=== PATIENT | female | born 1980 | race Caucasian/White ===

== ENCOUNTER 2016-06-23 21:22 | Inpatient (IN) | payer BC, OTHER ==
[2016-06-23] MEDS ORDERED: HYDROmorphone 1 MG/ML 1 ML SYRINGE IVP STA (22:54)
[2016-06-23] MEDS ORDERED: ONDANSETRON 4 MG/2 ML VIAL IVP STA (22:54)
[2016-06-23] MEDS ORDERED: SODIUM CHLORIDE 0.9% 1,000 ML IV STA (22:54)
[2016-06-23 23:07] LABS: Basophils % (A) 0 %; CH 32.2; CHCM 34.2; Eosinophils # (A) 0.5 k/uL (0-0.7); Eosinophils % (A) 3 %; HCT 42.4 % (34.0-46.0); HDW 2.38; Luc # (Auto) 0.17; Luc % (Auto) 1; Lymphocytes # (A) 2.6 k/uL (1.0-4.8); Lymphocytes % (A) 19 %; MCH 31.3 pg (25.0-35.0); MCHC 33.1 g/dL (31.0-37.0); MCV 94.7 fL (80.0-100.0); Mean Platelet Volume 6.5; Monocytes # (A) 0.6 k/uL (0-1.0); Monocytes % (A) 5 %; Neutrophils # (A) 10.2 k/uL (1.3-7.7); Neutrophils % (A) 72 %; RBC 4.48 m/uL (3.80-5.40); RDW 12.7 % (11.5-15.5); WBC 14.1 k/uL (3.8-10.6); WBC (Perox) 14.53
[2016-06-23 23:15] LABS: ALT 32 U/L (9-52); AST 23 U/L (14-36); Alkaline Phosphatase 65 U/L (38-126); Amorphous Sediment,Urine Rare /hpf; Amylase 51 U/L (30-110); Anion Gap 12 mmol/L; Appearance,Urine Cloudy (Clear); Bilirubin,Urine Negative (Negative); Blood Urea Nitrogen 12 mg/dL (7-17); Calcium 9.1 mg/dL (8.4-10.2); Carbon Dioxide 22 mmol/L (22-30); Chloride 107 mmol/L (98-107); Glucose 95 mg/dL (74-99); Glucose,Urine (UA) Negative (Negative); Ketones,Urine Negative (Negative); Leukocyte Esterase,Urine Negative (Negative); Nitrite,Urine Negative (Negative); Non-African American GFR(MDRD) >60 (>60 ml/min/1.73 sqM); Particle Count 9940; Potassium 4.4 mmol/L (3.5-5.1); Protein,Urine Trace (Negative); RBC,Urine 6 /hpf (0-5); Sodium 141 mmol/L (137-145); Specific Gravity,Urine 1.019 (1.001-1.035); Squamous Epithelial Cell,Urine 8 /hpf (0-4); Total Bilirubin 0.5 mg/dL (0.2-1.3); Total Protein 7.3 g/dL (6.3-8.2); UA Billing (MACRO vs. MICRO) MICRO; Urobilinogen,Urine <2.0 mg/dL (<2.0); WBC,Urine 3 /hpf (0-5)
--- NOTE | 2016-06-23 23:35 | XR ---
EXAMINATION TYPE: XR KUB DATE OF EXAM: 06/23/2016 11:22 PM COMPARISON: NONE HISTORY: Abdominal pain TECHNIQUE: 2 views FINDINGS: Bowel gas pattern is normal. There is no sign of intestinal obstruction or pneumoperitoneum . Fecal pattern is normal. Lung bases are clear. There is no sign of a mass. There are clips from tub al ligation. There are no pathologic calcifications over the kidneys. IMPRESSION: Nonacute abdomen.
[2016-06-24] MEDS ORDERED: HYDROmorphone 1 MG/ML 1 ML SYRINGE IVP STA ×3 (00:18→09:09)
[2016-06-24] MEDS ORDERED: RX INFO: IV CONTRAST WAS GIVEN 1 EACH MISC MISCELLANE PRN (00:22)
--- NOTE | 2016-06-24 00:26 | ED ---
Abdominal Pain HPI - General Chief Complaint: Abdominal Pain Stated Complaint: abdominal pain Time Seen by Provider: 06/23/16 22:53 Source: patient, family, RN notes reviewed Mode of arrival: ambulatory Limitations: no limitations - History of Present Illness Initial Comments: Patient is a 35-year-old female presenting to the with chief complaint of lower abdominal pain for approximately one day. She states that it occurred approximately 3 PM and has gotten much worse since then. She states a 10 out of 10. She denies any changes in urination or changes in bowel or bladder habits. She states that she's had no nausea or vomiting. He states this just a cramping bilateral lower abdominal pain, she denies vaginal discharge. She does state that she had a tubal ligation. Patient does state that she has some dysuria. She denies any significant past medical history. Patient denies any recent fever, chills, shortness of breath, chest pain, back pain, numbness or tingling, constipation or diarrhea, headaches or visual changes, or any other current symptoms. - Related Data Home Medications Medication Instructions Recorded Confirmed No Known Home Medications [No 06/23/16 06/24/16 Known Home Medications] Allergies Allergy/AdvReac Type Severity Reaction Status Date / Time paroxetine HCl [From Paxil] Allergy throat Verified 06/24/16 05:22 burning & swelling Review of Systems ROS Statement: Those systems with pertinent positive or pertinent negative responses have been documented in the HPI. ROS Other: All systems not noted in ROS Statement are negative. Past Medical History Past Medical History: Asthma, Musculoskeletal Disorder Additional Past Medical History / Comment(s): had gestational diabetes during , back problems History of Any Multi-Drug Resistant Organisms: None Reported Past Surgical History: Tubal Ligation Past Anesthesia/Blood Transfusion Reactions: No Reported Reaction Past Psychological History: Anxiety, Depression Additional Psychological History / Comment(s): Pt states PPD c\last delivery 2011 Smoking Status: Current every day smoker Past Alcohol Use History: None Reported Past Drug Use History: None Reported - Past Family History Father Family Medical History: Cancer Mother Family Medical History: Hypertension General Exam - General Exam Comments Initial Comments: Patient is a 35-year-old female. She has been in moderate discomfort. Limitations: no limitations General appearance: alert, in no apparent distress Head exam: Present: atraumatic, normocephalic, normal inspection Eye exam: Present: normal appearance, PERRL, EOMI. Absent: scleral icterus, conjunctival injection, periorbital swelling ENT exam: Present: normal exam, mucous membranes moist Neck exam: Present: normal inspection. Absent: tenderness, meningismus, lymphadenopathy Respiratory exam: Present: normal lung sounds bilaterally. Absent: respiratory distress, wheezes, rales, rhonchi, stridor Cardiovascular Exam: Present: regular rate, normal rhythm, normal heart sounds. Absent: systolic murmur, diastolic murmur, rubs, gallop, clicks GI/Abdominal exam: Present: soft, tenderness (Patient has significant bilateral lower abdominal tenderness.), normal bowel sounds. Absent: distended, guarding , rebound, rigid External exam: Present: normal external exam Speculum exam: Present: normal speculum exam. Absent: erythema, vaginal discharge, cervical discharge, vaginal bleeding By manual exam: Present: normal by manual exam, cervical motion tenderness ( Patient did have some cervical motion tenderness. There is no evidence of purulent discharge indicating a PID.) Extremities exam: Present: normal inspection, full ROM, normal capillary refill. Absent: tenderness, pedal edema, joint swelling, calf tenderness Back exam: Present: normal inspection Neurological exam: Present: alert, oriented X3, CN II-XII intact Psychiatric exam: Present: normal affect, normal mood Skin exam: Present: warm, dry, intact, normal color. Absent: rash Course Vital Signs 06/23/16 06/24/16 06/24/16 21:26 00:46 03:33 Temperature 98.3 F Pulse Rate 114 H 88 79 Respiratory 18 18 24 Rate Blood Pressure 138/80 112/66 139/74 O2 Sat by Pulse 100 99 98 Oximetry 06/24/16 05:03 Temperature 98.1 F Pulse Rate 87 Respiratory 24 Rate Blood Pressure 140/73 O2 Sat by Pulse 98 Oximetry - Reevaluation(s) Reevaluation #1: 06/24/16 03:33 Patient is reevaluated and has diffuse abdominal tenderness and guarding. There are concerns for peritonitis. Medical Decision Making - Medical Decision Making Patient is a 35-year-old female presenting to the ED with 1 day of bilateral lower abdominal pain. She states is a sharp stabbing pain. She states that she has no nausea or vomiting. Patient has significant only tender in the lower abdominal area. Initial KUB x-ray was negative for any acute process. CT of the abdomen and pelvis shows that there is free fluid in the pelvis and left paracolic gutter. No discrete intestinal abnormality seen. There is a cystic area 4.5 cm on the right adnexal region. The appendix is not visualized. The fluid in the pelvis has an intermediate attenuation suggestive of hemorrhage or complex fluid. The radiologist consider possibilities of PID with pelvic abscess, ruptured appendix with abscess, hemorrhagic ovarian cyst, ruptured ectopic . Patient at this point after the computed tomography scan was started on IV Flagyl and Zosyn. A surgical consult with Dr. Valentin as well as ARCHEOLOGY FACULTY MEMBER Dr. Guerrero will be consulted. Given the patient had no vaginal discharge is less likely to be a PID. Patient was given a second liter bolus as well as pain control. Dr. Homero Hernández were consulted. Patient was given aggressive fluid resuscitation. While in the EC her abdominal pain continue despite conservative peritonitis. The IV antibiotics were adjusted with 4.5 mg of Zosyn. Patient will be admitted to Dr. Pham with the diagnosis of hemorrhagic ovarian cyst. As well as peritonitis. Patient only given continuous pain medication. Patient will be violated by Dr. Guerrero in the morning and pending surgery. While in the EC patient also reports that she is feeling that she is unable to urinate. Patient will be given a Leonard catheter before going upstairs. Critical care time was approximately 35-40 minutes. - Lab Data Result diagrams: 06/23/16 23:00 06/23/16 23:00 Lab Results 06/23/16 06/23/16 06/23/16 Range/Units 23:00 23:00 23:00 WBC 14.1 H (3.8-10.6) k/uL RBC 4.48 (3.80-5.40) m/uL Hgb 14.0 (11.4-16.0) gm/dL Hct 42.4 (34.0-46.0) % MCV 94.7 (80.0-100.0) fL MCH 31.3 (25.0-35.0) pg MCHC 33.1 (31.0-37.0) g/dL RDW 12.7 (11.5-15.5) % Plt Count 357 (150-450) k/uL Neutrophils % 72 % Lymphocytes % 19 % Monocytes % 5 % Eosinophils % 3 % Basophils % 0 % Neutrophils # 10.2 H (1.3-7.7) k/uL Lymphocytes # 2.6 (1.0-4.8) k/uL Monocytes # 0.6 (0-1.0) k/uL Eosinophils # 0.5 (0-0.7) k/uL Basophils # 0.0 (0-0.2) k/uL Sodium 141 (137-145) mmol/L Potassium 4.4 (3.5-5.1) mmol/L Chloride 107 (98-107) mmol/L Carbon Dioxide 22 (22-30) mmol/L Anion Gap 12 mmol/L BUN 12 (7-17) mg/dL Creatinine 0.58 (0.52-1.04) mg/dL Est GFR (MDRD) Af Amer >60 (>60 ml/min/1.73 sqM) Est GFR (MDRD) Non-Af >60 (>60 ml/min/1.73 sqM) Glucose 95 (74-99) mg/dL Calcium 9.1 (8.4-10.2) mg/dL Total Bilirubin 0.5 (0.2-1.3) mg/dL AST 23 (14-36) U/L ALT 32 (9-52) U/L Alkaline Phosphatase 65 (38-126) U/L Total Protein 7.3 (6.3-8.2) g/dL Albumin 4.4 (3.5-5.0) g/dL Amylase 51 (30-110) U/L Lipase 64 (23-300) U/L Urine Color Urine Appearance (Clear) Urine pH (5.0-8.0) Ur Specific [place] (1.001-1.035) Urine Protein (Negative) Urine Glucose (UA) (Negative) Urine Ketones (Negative) Urine Blood (Negative) Urine Nitrate (Negative) Urine Bilirubin (Negative) Urine Urobilinogen (<2.0) mg/dL Ur Leukocyte Esterase (Negative) Urine RBC (0-5) /hpf Urine WBC (0-5) /hpf Ur Squamous Epith Cells (0-4) /hpf Amorphous Sediment (None) /hpf Urine HCG, Qual Not Detected (Not Detectd) Trichomonas Ag (Rapid) (Negative) 06/23/16 06/24/16 Range/Units 23:00 01:25 WBC (3.8-10.6) k/uL RBC (3.80-5.40) m/uL Hgb (11.4-16.0) gm/dL Hct (34.0-46.0) % MCV (80.0-100.0) fL MCH (25.0-35.0) pg MCHC (31.0-37.0) g/dL RDW (11.5-15.5) % Plt Count (150-450) k/uL Neutrophils % % Lymphocytes % % Monocytes % % Eosinophils % % Basophils % % Neutrophils # (1.3-7.7) k/uL Lymphocytes # (1.0-4.8) k/uL Monocytes # (0-1.0) k/uL Eosinophils # (0-0.7) k/uL Basophils # (0-0.2) k/uL Sodium (137-145) mmol/L Potassium (3.5-5.1) mmol/L Chloride (98-107) mmol/L Carbon Dioxide (22-30) mmol/L Anion Gap mmol/L BUN (7-17) mg/dL Creatinine (0.52-1.04) mg/dL Est GFR (MDRD) Af Amer (>60 ml/min/1.73 sqM) Est GFR (MDRD) Non-Af (>60 ml/min/1.73 sqM) Glucose (74-99) mg/dL Calcium (8.4-10.2) mg/dL Total Bilirubin (0.2-1.3) mg/dL AST (14-36) U/L ALT (9-52) U/L Alkaline Phosphatase (38-126) U/L Total Protein (6.3-8.2) g/dL Albumin (3.5-5.0) g/dL Amylase (30-110) U/L Lipase (23-300) U/L Urine Color Yellow Urine Appearance Cloudy H (Clear) Urine pH 8.0 (5.0-8.0) Ur Specific [place] 1.019 (1.001-1.035) Urine Protein Trace H (Negative) Urine Glucose (UA) Negative (Negative) Urine Ketones Negative (Negative) Urine Blood Negative (Negative) Urine Nitrate Negative (Negative) Urine Bilirubin Negative (Negative) Urine Urobilinogen <2.0 (<2.0) mg/dL Ur Leukocyte Esterase Negative (Negative) Urine RBC 6 H (0-5) /hpf Urine WBC 3 (0-5) /hpf Ur Squamous Epith Cells 8 H (0-4) /hpf Amorphous Sediment Rare H (None) /hpf Urine HCG, Qual (Not Detectd) Trichomonas Ag (Rapid) Negative (Negative) - Radiology Data Radiology results: report reviewed Patient's KUB reveals a nonacute abdomen read by Dr. Monsalve. Patient's abdomen and pelvis CT with contrast reveals there is fluid in the pelvis and left paracolic gutter. No street to intestinal abnormality seen. There is a cystic 4.5 cm in the right adnexal region. Appendix is not identified. Fluid in the pelvis has indeterminate attenuation is suggestive of hemorrhage or complex fluid. In conclusion he would consider possibilities with PID with pelvic abscess, ruptured appendix with abscess, hemorrhagic ovarian or ruptured ectopic . This was read by Dr. Monsalve. After that a transvaginal ultrasound was completed and there is impression is a complex 6 and mean or mass over the right adnexal region which could be a hemorrhagic ovarian cyst. There is moderate amount of free fluid in the pelvis. Normal uterus and endometrium. Considering the possibilities of PID and endometriosis with hemorrhagic ruptured ovarian cyst. Disposition Clinical Impression: Peritonitis, Hemorrhagic ovarian cyst Disposition: ADMITTED IP TO THIS HOSP Condition: Good Time of Disposition: 04:04
--- NOTE | 2016-06-24 01:03 | CT ---
EXAMINATION TYPE: CT abdomen pelvis w con DATE OF EXAM: 06/24/2016 12:42 AM COMPARISON: 07/20/2009 HISTORY: Mid to Lower abd pain CT DLP: 419.10 mGycm Automated exposure control for dose reduction was used. TECHNIQUE: Helical acquisition of images was performed from the lung bases through the pelvis. CONTRAST: Performed without Oral Contrast and with IV Contrast, patient injected with 100 mL of Omnipaque 300. FINDINGS: Lung bases are clear of consolidation. There is no pleural effusion. Heart size is normal. The liver spleen pancreas and gallbladder appear normal. Bile ducts are not dilated. There is no adre nal mass. Kidneys show satisfactory contrast opacification. There is no hydronephrosis. There is no r etroperitoneal adenopathy. There is some free fluid in the pelvis and also in the left paracolic gutt er. There is no evidence of a bowel obstruction. There is a localized 4.5 cm fluid collection in the right adnexal region. The fluid in the pelvis has intermediate attenuation. The bladder distends smoo thly. The bony structures are intact. Appendix is not identified. There are surgical clips apparently from tubal ligation. IMPRESSION: THERE IS FREE FLUID IN THE PELVIS AND LEFT PARACOLIC GUTTER. NO DISCRETE INTESTINAL ABNORMALITY IS SE EN. THERE IS A CYSTIC 4.5 CM AREA IN THE RIGHT ADNEXAL REGION. APPENDIX IS NOT IDENTIFIED. FLUID IN T HE PELVIS HAS INTERMEDIATE ATTENUATION THAT IS SUGGESTIVE OF HEMORRHAGE OR COMPLEX FLUID. I WOULD CONSIDER POSSIBILITIES OF PID WITH PELVIC ABSCESS, RUPTURED APPENDIX WITH ABSCESS. HEMORRHAGI C OVARIAN , RUPTURED ECTOPIC . FOLLOW-UP IS RECOMMENDED. ABNORMALITIES ARE NEW COMPARED TO O LD CT SCAN.
[2016-06-24] MEDS ORDERED: PIPERACILLIN-TAZOBACTAM 3.375 GM in DEXTROSE/WATER 1 50ML.BAG IVPB STA (01:22)
[2016-06-24] MEDS ORDERED: metroNIDAZOLE-NS PMX 500 MG in SALINE 1 100ML.BAG IVPB STA (01:31)
[2016-06-24] MEDS ORDERED: SODIUM CHLORIDE 0.9% 1,000 ML IV ONE (01:32)
[2016-06-24] MEDS ORDERED: PIPERACILLIN TAZOBACTAM IVPB STA (02:02)
[2016-06-24] MEDS ORDERED: DEXTROSE IVPB STA (02:02)
[2016-06-24] MEDS ORDERED: WATER IVPB STA (02:02)
[2016-06-24] MEDS ORDERED: SODIUM CHLORIDE 0.9% 500 ML IV ONE (02:04)
[2016-06-24] MEDS: HYDROmorphone 1 MG/ML 1 ML SYRINGE IVP PRN ×5 (02:26→08:20)
[2016-06-24] MEDS ORDERED: WATER IVPB ONE ×2 (03:00)
[2016-06-24] MEDS ORDERED: PIPERACILLIN TAZOBACTAM IVPB ONE ×2 (03:00)
[2016-06-24] MEDS ORDERED: DEXTROSE 5% IVPB ONE ×2 (03:00)
--- NOTE | 2016-06-24 03:36 | US ---
EXAMINATION TYPE: US transvaginal DATE OF EXAM: 06/24/2016 3:02 AM COMPARISON: on PACS CLINICAL HISTORY: extreme pain in pelvic region, tubal ligation x 2 years ago,. TECHNIQUE: Transvaginal (TV) Date of LMP: 05/28/2016 EXAM MEASUREMENTS: Uterus: 7.9 x 5.3 x 4.0 cm Endometrial Stripe: 0.7 cm Right Ovary: 8.9 x 6.0 x 9.0 cm Left Ovary: 3.0 x 1.8 x 1.7 cm TECHNOLOGIST IMPRESSION: Patient could not void 1. Uterus: Anteverted, wnl 2. Endometrium: wnl 3. Right Ovary: heterogeneous, enlarged, difficult to obtain vascular flow. Complex lesion= 5.5 x 4 .5 x 5.2 cm 4. Left Ovary: follicles seen, wnl Spectral, color and waveform doppler imaging shows good arterial and venous flow within the ovaries ; there is no evidence for ovarian torsion. 5. Bilateral Adnexa: large amount of free fluid in bilateral adnexa 6. Posterior cul-de-sac: free fluid 7. Cervix- wnl IMPRESSION: There is a complex 6 cm mass in the right adnexal region that could be a hemorrhagic ovar gibson cyst. There is a moderate amount of free fluid in the pelvis. Normal uterus and endometrium. I wo uld consider the possibilities of PID and endometriosis and hemorrhagic ruptured ovarian cyst.. Normal Values: Uterine Length: < 10cm Endometrium: Proliferative (Day 6 ? 14): 4 ? 6mm [place] (Day 15 ? 28): 7 ? 14mm Post Menopausal (and not symptomatic): up to 8mm Post Menopausal (with vaginal bleeding): upper limits <5mm Post Menopausal with HRT: upper limits 8 - 15mm Post Menopausal with tamoxifen: < 6mm (although 50% of those receiving tamoxifen have been reported t o have thickness >8mm)
[2016-06-24] MEDS ORDERED: NALOXONE 0.4 MG/ML 1 ML VIAL IV PRN ×2 (04:04→10:26)
[2016-06-24] MEDS ORDERED: ONDANSETRON 4 MG/2 ML VIAL IVP PRN ×2 (04:04→10:24)
[2016-06-24 05:18] VITALS: BMI 26.3
[2016-06-24] MEDS: SODIUM CHLORIDE 0.9% 1,000 ML IV SCH ×2 (05:27→20:48)
[2016-06-24] MEDS ORDERED: metroNIDAZOLE-NS PMX 500 MG in SALINE 1 100ML.BAG IVPB SCH (08:00)
[2016-06-24] MEDS ORDERED: PIPERACILLIN-TAZOBACTAM 3.375 GM in DEXTROSE/WATER 1 50ML.BAG IVPB SCH (08:00)
[2016-06-24] MEDS: FAMOTIDINE 20 MG TAB PO SCH ×2 (08:20→21:42)
--- NOTE | 2016-06-24 09:16 | P.HPOB ---
History of Present Illness H&P Date: 06/24/16 Chief Complaint: Severe abdominal pain, 10 out of 10 This is a 35-year-old white female 4 para 400 for a less muscle. 2015 who presented through the emergency center last night with abdominal pain. Patient states that yesterday she began with a bloated sensation in the abdomen. The pain started in the mid abdominal region, but has increased in severity as well as location. It is now across the right and left lower quadrants. Patient presented to the emergency room where an ultrasound was performed. This was consistent with a 6 cm complex right adnexal mass, along with free fluid in the pelvis. Patient denies nausea or vomiting. She has been nothing by mouth since last night, at which time she ate a steak and some potatoes. She denies vaginal discharge, she has 1 sexual partner, please see below. Past medical history is significant for asthma, depression and anxiety. Current medications albuterol inhaler as needed and ordered per Dr. Zuniga. Past surgical history tubal ligation 2013. ALLERGIES include Paxil to which reports a swollen throat. Family history is unremarkable, no history of cancers of the ovaries, colon, cervix, or uterus. 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 Patient denies history of gonorrhea chlamydia HSV or HPV infections. On exam this is a pleasant white female who is in obvious distress. She is 5 foot 0 inches, 135 pounds, vital signs are stable and she remains afebrile. The HEENT examination is negative. The chest is clear in all landeros anteriorly and posteriorly. The cardiac exam reveals regular rate and rhythm with no murmur click or rub. Breast examination is deferred at this time, patient is very uncomfortable at the bedside. The abdomen is exquisitely tender, positive rebound, positive guarding. There are hypoactive bowel sounds. No CVA tenderness. Pelvic examination is deferred at this time for possible right ovarian torsion. Sonographic evaluation of the pelvis is reviewed. Extremities reveal no edema, there are good peripheral pulses. Impression: Surgical abdomen with 6 cm complex right adnexal mass, possible right ovarian torsion, possible right hemorrhagic ovarian cyst, possible right endometrioma, possible ruptured appendix. Plan: We will proceed to the operating room for exploratory laparotomy, likely right salpingo-oophorectomy, possible appendectomy, and surgery as deemed appropriate. I have reviewed with the patient and her in detail the risks of surgery including bleeding, infection, perforation or damage to bowel, bladder, ureters, blood vessels or indeed any pelvic or abdominal organs. Patient has been nothing by mouth since 5 PM last night, we did discuss the risk of anesthesia, aspiration, nerve damage, or even . Antibiotics have been given. All questions answered. Consent signed. I believe the patient and her understand our discussion and are amenable to the plan. General surgeons are available in the operating room at this time and will be called if needed. Review of Systems Negative except as in HPI Past Medical History Past Medical History: Asthma, Musculoskeletal Disorder Additional Past Medical History / Comment(s): had gestational diabetes during , back problems History of Any Multi-Drug Resistant Organisms: None Reported Past Surgical History: Tubal Ligation Past Anesthesia/Blood Transfusion Reactions: No Reported Reaction Past Psychological History: Anxiety, Depression Additional Psychological History / Comment(s): Pt states PPD c\last delivery 2011 Smoking Status: Current every day smoker Past Alcohol Use History: None Reported Past Drug Use History: None Reported - Past Family History Father Family Medical History: Cancer Mother Family Medical History: Hypertension Medications and Allergies Home Medications Medication Instructions Recorded Confirmed Type No Known Home Medications [No 06/23/16 06/24/16 History Known Home Medications] Allergies Allergy/AdvReac Type Severity Reaction Status Date / Time paroxetine HCl [From Paxil] Allergy throat Verified 06/24/16 05:22 burning & swelling Exam - Vital Signs Vital signs: Vital Signs Temp Pulse Pulse Resp BP BP Pulse Ox 06/24/16 07:00 97.7 F 64 20 140/67 98 06/24/16 05:46 96.8 F L 69 18 103/63 98 06/24/16 05:03 98.1 F 87 24 140/73 98 Intake and Output 06/23/16 06/24/16 06/24/16 22:59 06:59 14:59 Other: Voiding Method Indwelling Catheter Weight 62.596 kg See dictation, please Results Result Diagrams: 06/23/16 23:00 06/23/16 23:00 Assessment and Plan Plan: For exploratory laparotomy, possible right salpingo-oophorectomy, surgery as deemed appropriate. All risks benefits and alternatives of this plan are discussed in detail. Time with Patient: Greater than 30
[2016-06-24] MEDS ORDERED: PROPOFOL 10 MG/ML 20 ML VIAL IV ONE (09:36)
[2016-06-24] MEDS ORDERED: SODIUM CHLORIDE 0.9% 1,000 ML BAG ONE (09:36)
[2016-06-24] MEDS ORDERED: LIDOCAINE 1% INJ 10MG/ML (20 ML MDV) ONE (09:36)
[2016-06-24] MEDS ORDERED: ONDANSETRON 4 MG/2 ML VIAL ONE (09:36)
[2016-06-24] MEDS ORDERED: KETOROLAC 30 MG/ML 1 ML VIAL ONE (09:36)
[2016-06-24] MEDS ORDERED: SUCCINYLCHOLINE CHLORIDE 100 MG/5 ML SYR IV ONE (09:36)
[2016-06-24] MEDS ORDERED: NEOSTIGMINE 1 MG/ML 10 ML VIAL ONE (09:36)
[2016-06-24] MEDS ORDERED: fentaNYL (PF) 50 MCG/ML 2 ML AMP ONE (09:36)
[2016-06-24] MEDS ORDERED: LACTATED RINGERS 1,000 ML BAG IV ONE (09:36)
[2016-06-24] MEDS ORDERED: MIDAZOLAM 2 MG/2 ML VIAL ONE (09:36)
[2016-06-24] MEDS ORDERED: ROCURONIUM BROMIDE 10 MG/ML 10 ML VIAL IV ONE (09:36)
[2016-06-24] MEDS: SODIUM CHLORIDE 0.9% 1,000 ML IV ONE ×2 (09:36→20:46)
[2016-06-24] MEDS ORDERED: GLYCOPYRROLATE 0.2 MG/ML 2 ML VIAL ONE (09:36)
[2016-06-24] MEDS: LACTATED RINGERS 1,000 ML IV ONE ×2 (10:23→13:26)
[2016-06-24] MEDS ORDERED: SIMETHICONE 80 MG CHEWABLE PO PRN (10:24)
[2016-06-24] MEDS ORDERED: METOCLOPRAMIDE 5 MG/ML 2 ML VIAL IVP PRN (10:24)
[2016-06-24] MEDS ORDERED: diphenhydrAMINE 50 MG/ML 1 ML VIAL IVP PRN (10:24)
[2016-06-24] MEDS ORDERED: IBUPROFEN 600 MG TAB PO PRN (10:24)
--- NOTE | 2016-06-24 10:24 | P.OP ---
Date of Procedure: 06/24/16 Preoperative Diagnosis: Surgical abdomen, complex 6 cm right adnexal mass. Postoperative Diagnosis: Hemoperitoneum, bleeding ruptured right ovarian hemorrhagic cyst. Anesthesia: CASEYA Surgeon: Nena Hernández Engine Dispatcher #1: Valente Steven Estimated Blood Loss (ml): 700 IV fluids (ml): 1,000 Urine output (ml): 100 Pathology: other (Right tube and ovary) Condition: stable Disposition: PACU Description of Procedure: Patient is brought to the operating room with a surgical abdomen with rebound and guarding. Informed consent is reviewed signed witnessed and dated. She's placed in the dorsal supine position and a general anesthetic is administered without difficulty. The appropriate timeout is performed to assure proper patient and procedural identification. Antibiotics are already infusing. Urine hCG is negative. Abdomen is prepped and draped in usual sterile fashion. Leonard catheter is placed to direct drainage. A low transverse abdominal incision is made in this is carried down to the subcutaneous tissue of approximately 2 cm depth. The fascia is isolated, scored and extended bilaterally with curved Miller scissors. Peritoneum is next identified and incised. Upon entering the peritoneal cavity a large amount of blood and clot is encountered. This is suctioned thoroughly. The abdomen is packed gently with sterile sponges. The uterus appears normal to inspection as does the left tube and ovary. The right ovary contains an actively bleeding ruptured hemorrhagic cyst. Decision was made to proceed with right salpingo- oophorectomy as discussed with the patient preoperatively. The right adnexa is brought up and clamped across its base with a [place] clamp. The right tube and ovary are removed and sent to pathology for evaluation. The pedicle is tied with 0 Vicryl suture, flashed, retied for excellent hemostasis. The left tube and ovary again are normal to inspection, no obvious pelvic endometriosis, no evidence of infection, no adhesions. Appendix is normal to inspection. The abdomen is generously irrigated and all clots and blood are removed. Peritoneum is allowed to close by secondary intention. Fascia is closed in a running stitch of 0 Vicryl suture with over ligation in the midline. Subcutaneous tissue is inspected, noted to be clean and dry, reapproximated with 3-0 Vicryl in a running fashion. 4-0 undyed Vicryl is used in a subcuticular manner for final skin closure. Steri-Strips and Mastisol are applied to the wound. Dressing is applied as well. Leonard is noted to be draining clear urine. All sponge needle and enhancement counts are correct at the end of our procedure. Patient is brought back to the recovery room in stable condition with a blood pressure of 104/60, pulse 71, 100% O2 saturation. Total estimated blood loss 700 mL, fluid replacement 1000 mL, 100 mL urine total.
[2016-06-24] MEDS ORDERED: HYDROmorphone PCA 5 MG/25 ML SYRINGE IV PRN (10:26)
[2016-06-24] MEDS ORDERED: HYDROmorphone 1 MG/ML 1 ML SYRINGE IVP ONE (10:45)
[2016-06-24] MEDS: HYDROmorphone 1 MG/ML 1 ML SYRINGE IVP ONE ×2 (10:53→11:00)
[2016-06-24] MEDS ORDERED: ACETAMINOPHEN IV (For NPO) 1,000 MG in EMPTY BAG 1 BAG IVPB ONE (11:00)
[2016-06-24] MEDS: Acetaminophen-Codeine 300-30mg TAB PO PRN (20:15)
[2016-06-24] MEDS: LACTATED RINGERS 1,000 ML IV SCH ×2 (20:47→21:42)
[2016-06-24] MEDS: SENNOSIDES-DOCUSATE SODIUM 1 EACH TAB PO SCH (21:42)
[2016-06-24] MEDS: KETOROLAC 30 MG/ML 1 ML VIAL IVP PRN (23:53)
[2016-06-25 00:23] VITALS: TEMP 98.1
[2016-06-25] MEDS: Acetaminophen-Codeine 300-30mg TAB PO PRN ×2 (02:56→09:27)
[2016-06-25] MEDS: KETOROLAC 30 MG/ML 1 ML VIAL IVP PRN (05:43)
[2016-06-25] MEDS: LACTATED RINGERS 1,000 ML IV SCH (06:41)
--- NOTE | 2016-06-25 08:12 | P.DS ---
Providers Date of admission: 06/24/16 04:04 Expected date of discharge: 06/25/16 Attending physician: Nena Hernández Primary care physician: Stated None Hospital Course: This is a 35-year-old 4 para 4004 status post tubal ligation who presented to the emergency center with abdominal bloating and severe abdominal pain. Sonographic evaluation was consistent with free fluid in the abdomen along with a 6 cm right adnexal mass. Please see my dictated history and physical for details. Patient was taken for exploratory laparotomy and was noted to have a hemoperitoneum with at least 700 mL of blood and clot. This is evacuated, she was found to have a bleeding hemorrhagic right ovarian cyst. A right salpingo- oophorectomy was performed without difficulties. Patient did well intraoperatively, please see my dictated operative note for details. This morning the patient is doing well. Morning CBC is pending. Vital signs are stable and she is afebrile. Incision is clean and dry, intact, Steri- Strips applied. Extremities are negative for edema, chest is clear. There is no vaginal bleeding. Patient is being discharged home today in good condition. She will follow-up in the office with me in 2 weeks. I have reminded her no intercourse, tampons or douching. She will use [id number] Aleve or Advil products as needed for pain. No heavy lifting. I've asked her to call with any fevers shakes or chills, foul smelling or bloody incisional drainage, with any pain not alleviated by [id number] products, or indeed with any concerns. Patient Condition at Discharge: Good Plan - Discharge Summary Discharge Medication List No Known Home Medications [No Known Home Medications] 06/23/16 [History] Follow up Appointment(s)/Referral(s): None,Stated [Primary Care Provider] - 2 Weeks Discharge Disposition: HOME SELF-CARE
[2016-06-25 08:41] LABS: Basophils % (A) 0 %; CH 31.7; CHCM 32.4; Eosinophils # (A) 0.4 k/uL (0-0.7); Eosinophils % (A) 5 %; HCT 27.2 % (34.0-46.0); HDW 2.32; Luc # (Auto) 0.07; Luc % (Auto) 1; Lymphocytes # (A) 1.5 k/uL (1.0-4.8); Lymphocytes % (A) 19 %; MCH 32.3 pg (25.0-35.0); MCHC 32.9 g/dL (31.0-37.0); MCV 98.2 fL (80.0-100.0); Mean Platelet Volume 6.9; Monocytes # (A) 0.3 k/uL (0-1.0); Monocytes % (A) 4 %; Neutrophils # (A) 5.4 k/uL (1.3-7.7); Neutrophils % (A) 70 %; RBC 2.77 m/uL (3.80-5.40); RDW 12.8 % (11.5-15.5); WBC 7.7 k/uL (3.8-10.6); WBC (Perox) 8.01
[2016-06-25 08:45] LABS: HGB 8.9 gm/dL (11.4-16.0)
[2016-06-25 09:27] VITALS: BP 114/68; PULSE 85; RESP 18
[2016-06-25] MEDS: FAMOTIDINE 20 MG TAB PO SCH (09:30)
[2016-06-25] MEDS: SENNOSIDES-DOCUSATE SODIUM 1 EACH TAB PO SCH (09:33)
[2016-06-25 10:07] LABS: Chlamydia/GC Source Vaginal
[2016-06-25] MEDS ORDERED: ACETAMINOPHEN TAB 325 MG TAB PO PRN (10:26)
== END 2016-06-25 10:20 | disposition home or self-care (01) | DRG 742 ==
LOC: EC 21:22 → 4MS4W 06-24 04:04 → 4FBP 06-24 11:40
PROVIDERS: ADMIT Obstetrics & Gynecology; ATTEND Obstetrics & Gynecology
PROC: 0UT00ZZ Resection of Right Ovary, Open Approach (ICD-10-PCS; 2016-06-24)
PROC: 0W9J0ZZ Drainage of Pelvic Cavity, Open Approach (ICD-10-PCS; 2016-06-24)
PROC: 0UT50ZZ Resection of Right Fallopian Tube, Open Approach (ICD-10-PCS; principal; 2016-06-24 09:36)
DX: N83.201 Unspecified ovarian cyst, right side (principal); K66.1 Hemoperitoneum; J45.909 Unspecified asthma, uncomplicated; F17.200 Nicotine dependence, unspecified, uncomplicated; Z86.32 Personal history of gestational diabetes; Z98.51 Tubal ligation status; Z86.59 Personal history of other mental and behavioral disorders
CPT/HCPCS: 36415; 74000; 74177; 76830; 80053; 81001; 81025; 82150; 83690; 85025; 87070; 87205; 87491; 87591; 87808; 88305; 93975; 96361; 96365; 96366; 96367; 96375; 96376; 99291

== ENCOUNTER 2017-08-15 20:20 | Emergency (ER) | payer BC, OTHER ==
[2017-08-15] MEDS ORDERED: methylPREDNISolone SOD SUCCI 125 MG/2 ML VIAL IM STA (21:15)
[2017-08-15] MEDS ORDERED: ALBUTEROL NEBULIZED 7.5 MG, IPRATROPIUM NEBULIZED 0.5 MG, SODIUM CHLORIDE 0.9% NEBULIZ ... INHALATION ONE ×3 (21:15)
--- NOTE | 2017-08-15 21:22 | ED ---
General Adult HPI - General Chief complaint: Shortness of Breath Stated complaint: BARRY Time Seen by Provider: 08/15/17 20:30 Source: patient, family, RN notes reviewed Mode of arrival: ambulatory Limitations: no limitations - History of Present Illness Initial comments: This is a 36-year-old female presents emergency Department complaining of difficulty breathing. Patient states she has asthma. Patient states she's been coughing a little and having some sputum production. Patient denies any fever chills. Patient states she is wheezing quite a bit. Patient denies any leg swelling or calf pain. Patient denies any chest pain or palpitations. Patient states when she coughed earlier she had a little bit of abdominal pain but it was sharp and fleeting. Patient states currently she has no abdominal pain. Patient denies any lightheadedness dizziness. Patient denies any headache patient denies numbness weakness - Related Data Previous Rx's Medication Instructions Recorded Albuterol Inhaler [Ventolin Hfa 1 - 2 puff INHALATION Q6HR PRN #2 08/15/17 Inhaler] puff predniSONE 40 mg PO DAILY #8 tab 08/15/17 Allergies Allergy/AdvReac Type Severity Reaction Status Date / Time paroxetine HCl [From Paxil] Allergy throat Verified 08/15/17 20:31 burning & swelling Review of Systems ROS Statement: Those systems with pertinent positive or pertinent negative responses have been documented in the HPI. ROS Other: All systems not noted in ROS Statement are negative. Past Medical History Past Medical History: Asthma, Musculoskeletal Disorder Additional Past Medical History / Comment(s): had gestational diabetes during , back problems History of Any Multi-Drug Resistant Organisms: None Reported Past Surgical History: Tubal Ligation Past Anesthesia/Blood Transfusion Reactions: No Reported Reaction Past Psychological History: Anxiety, Depression Smoking Status: Current every day smoker Past Alcohol Use History: None Reported Past Drug Use History: None Reported - Past Family History Father Family Medical History: Cancer Mother Family Medical History: Hypertension General Exam - General Exam Comments Initial Comments: GENERAL: Patient is well-developed and well-nourished. Patient is nontoxic and well- hydrated and is in mild distress. ENT: Neck is soft and supple. No significant lymphadenopathy is noted. Oropharynx is clear. Moist mucous membranes. Neck has full range of motion without eliciting any pain. EYES: The sclera were anicteric and conjunctiva were pink and moist. Extraocular movements were intact and pupils were equal round and reactive to light. Eyelids were unremarkable. PULMONARY: Patient has diffuse expiratory wheezing. CARDIOVASCULAR: Patient is mildly tachycardic ABDOMEN: Soft and nontender with normal bowel sounds. SKIN: Skin is clear with no lesions or rashes and otherwise unremarkable. NEUROLOGIC: Patient is alert and oriented x3. Cranial nerves II through XII are grossly intact. Motor and sensory are also intact. Normal speech, volume and content. Symmetrical smile. MUSCULOSKELETAL: Normal extremities with adequate strength and full range of motion. LYMPHATICS: No significant lymphadenopathy is noted PSYCHIATRIC: Normal psychiatric evaluation. Limitations: no limitations Course Vital Signs 08/15/17 08/15/17 08/15/17 20:26 21:09 21:38 Temperature 97.1 F L Pulse Rate 102 H 108 H Respiratory 24 18 Rate Blood Pressure 174/111 139/97 O2 Sat by Pulse 95 Oximetry 08/15/17 08/15/17 08/15/17 21:48 21:58 22:09 Temperature Pulse Rate 94 94 89 Respiratory 18 17 20 Rate Blood Pressure O2 Sat by Pulse Oximetry 08/15/17 08/15/17 08/15/17 22:19 22:32 22:52 Temperature Pulse Rate 92 109 H 101 H Respiratory 18 20 18 Rate Blood Pressure 138/78 O2 Sat by Pulse 96 Oximetry Medical Decision Making - Medical Decision Making EKG shows sinus tachycardia at 108 bpm ME interval 214 QRS is 90 QT interval 350 QTC is 469 per patient's EKG shows no ST segment elevation or depression or T wave abnormalities are noted. I went back into reevaluate the patient she felt considerably better and she only had scattered wheezing at this time. I will send the patient home and give her an albuterol inhaler as well as steroids. Disposition Clinical Impression: Asthma with exacerbation Disposition: HOME SELF-CARE Condition: Good Instructions: Asthma (ED) Additional Instructions: Patient should stop smoking. Patient should use albuterol as prescribed. Patient's take prednisone as prescribed. Patient should follow-up with her primary medical care doctor. Patient should return to the emergency department as any difficulty breathing or any new symptoms. Prescriptions: Albuterol Inhaler [Ventolin Hfa Inhaler] 1 - 2 puff INHALATION Q6HR PRN #2 puff PRN Reason: Difficulty breathing predniSONE 40 mg PO DAILY #8 tab Referrals: Karon Pride MD [Primary Care Provider] - 1-2 days Time of Disposition: 23:15
--- NOTE | 2017-08-15 22:54 | XR ---
EXAMINATION TYPE: XR chest 2V DATE OF EXAM: 08/15/2017 COMPARISON: 01/01/2010 HISTORY: Difficulty breathing TECHNIQUE: Frontal and lateral views of the chest are obtained. FINDINGS: Heart and mediastinum are normal. Lungs are clear. Diaphragm is normal. Bony thorax is int act. There are chest leads. IMPRESSION: Normal chest. No change.
[2017-08-15 23:23] VITALS: BP 133/80; PULSE 88; RESP 16; TEMP 98.2
== END 2017-08-15 23:23 | disposition home or self-care (01) ==
LOC: EC 20:20
DX: J45.901 Unspecified asthma with (acute) exacerbation (principal); R00.0 Tachycardia, unspecified; R10.9 Unspecified abdominal pain; F17.200 Nicotine dependence, unspecified, uncomplicated; Z88.8 Allergy status to other drugs, medicaments and biological substances
CPT/HCPCS: 94644; 93005; 71046; 99285; 96372; J2930

== ENCOUNTER 2019-01-04 15:52 | Emergency (ER) | payer OTHER ==
[2019-01-04 16:47] VITALS: BP 120/73; PULSE 82; RESP 18; TEMP 97.9
[2019-01-04] MEDS ORDERED: ACET/COD 300 MG/30 MG STARTER PACK 6 TAB BTL PO STA (17:25)
--- NOTE | 2019-01-04 17:29 | XR ---
PROCEDURE: XR knee complete LT - 3V DATE AND TIME: 01/04/2019 5:12 PM CLINICAL INDICATION: Injury, pain TECHNIQUE: Department protocol COMPARISON: None FINDINGS: There is no fracture or malalignment. The soft tissues are unremarkable. IMPRESSION: NO ACUTE PROCESS.
--- NOTE | 2019-01-04 17:40 | ED ---
Lower Extremity Injury HPI - General Chief Complaint: Extremity Injury, Lower Stated Complaint: lt leg injury Time Seen by Provider: 01/04/19 16:59 Source: patient Mode of arrival: wheelchair Limitations: no limitations - History of Present Illness Initial Comments: 38-year-old female presenting for left knee pain she states when she planted her foot and twisted her knee yesterday she felt a tear in her left knee. She states that she has had a previous right meniscus injury and this felt similar. Patient denies numbness tingling loss sensation of leg or soft tissue swelling. Denies any redness fever or flu like symptoms. Patient denies any fall direct trauma. Patient has any pain at the ankle or the hip. Patient states that pain at times does radiate downwards from knee. Pain is worsened with ambulation. Patient states she is able to weight-bear and ambulate. Infiltrate upon arrival in the emergency department. Remaining review of systems negative patient denies any other complaints appears well upon arrival no signs of acute distress. Patient is accompanied by her significant other. - Related Data Home Medications Medication Instructions Recorded Confirmed Ibuprofen [Motrin Ib] 400 mg PO Q6H PRN 01/04/19 01/04/19 Allergies Allergy/AdvReac Type Severity Reaction Status Date / Time paroxetine HCl [From Paxil] Allergy throat Verified 01/04/19 17:08 burning & swelling Review of Systems ROS Statement: Those systems with pertinent positive or pertinent negative responses have been documented in the HPI. ROS Other: All systems not noted in ROS Statement are negative. Past Medical History Past Medical History: Asthma, Musculoskeletal Disorder Additional Past Medical History / Comment(s): had gestational diabetes during , back problems History of Any Multi-Drug Resistant Organisms: None Reported Past Surgical History: Tubal Ligation Past Anesthesia/Blood Transfusion Reactions: No Reported Reaction Past Psychological History: Anxiety, Depression Smoking Status: Current every day smoker Past Alcohol Use History: None Reported Past Drug Use History: None Reported - Past Family History Father Family Medical History: Cancer Mother Family Medical History: Hypertension General Exam - General Exam Comments Initial Comments: General: The patient is awake and alert, in no distress, and does not appear acutely ill. Eye: Pupils are equal, round and reactive to light, extra-ocular movements are intact. No nystagmus. There is normal conjunctiva bilaterally. No signs of icterus. Cardiovascular: There is a regular rate and rhythm. No murmur, rub or gallop is appreciated. Respiratory: Lungs are clear to auscultation, respirations are non-labored, breath sounds are equal. No wheezes, stridor, rales, or rhonchi. Musculoskeletal: Upon inspection of the knees bilaterally there is no acute abnormality. No soft tissue swelling abrasions lacerations. Patient is tender palpation of the anterior left knee. Patient is able to fully range at the knees bilaterally equal comparison. Patient does admit to discomfort with range of motion of left knee. Strength intact sensation intact the proximal distal to injury site for cells pedis pulses equal +2 bilaterally. Capillary refill less than 3 seconds. No noted laxity of the knee joint. Neurological: A&O x 3. CN II-XII intact, There are no obvious motor or sensory deficits. Coordination appears grossly intact. Speech is normal. Skin: Skin is warm and dry and no rashes or lesions are noted. Psychiatric: Cooperative, appropriate mood & affect, normal judgment. Limitations: no limitations Course Vital Signs 01/04/19 16:45 Temperature 97.9 F Pulse Rate 82 Respiratory 18 Rate Blood Pressure 120/73 O2 Sat by Pulse 96 Oximetry Medical Decision Making - Medical Decision Making 38-year-old female presenting for left knee pain. Happened after a planning and twisting movement. Denies dislocation. Physical examination unremarkable aside from tenderness with range of motion. Imaging studies are negative for acute osseous process. Patient was given a knee immobilizer. Instructed to follow-up with orthopedic surgery. Rice instructions were discussed the patient was given a starter pack for Tylenol No. 3 for pain. Patient is agreeable this care plan return parameters and discharge at this time. Patient is discharged. Boby discussed the case with attending provider Dr. Rowland Disposition Clinical Impression: Strain of left knee, Left knee pain Disposition: HOME SELF-CARE Condition: Good Instructions (If sedation given, give patient instructions): Knee Sprain (ED), R.I.C.E. Treatment (ED) Additional Instructions: Please use medication as discussed. Please follow-up with family doctor in the next 2 days. If symptoms persist follow-up with orthopedic surgery. Please return to emergency room if the symptoms increase or worsen or for any other concerns. Is patient prescribed a controlled substance at d/c from ED?: No Referrals: None,Stated [Primary Care Provider] - 1-2 days Melquiades Mistry, PAC [PHYSICIAN TIMBER REPAIRER] - 1-2 days Time of Disposition: 17:40
== END 2019-01-04 18:05 | disposition home or self-care (01) ==
LOC: EC 15:52
DX: S86.812A Strain of other muscle(s) and tendon(s) at lower leg level, left leg, initial encounter (principal); F17.200 Nicotine dependence, unspecified, uncomplicated; Z87.828 Personal history of other (healed) physical injury and trauma; Z98.51 Tubal ligation status; Z88.8 Allergy status to other drugs, medicaments and biological substances; X50.0XXA Overexertion from strenuous movement or load, initial encounter
CPT/HCPCS: 99283

== ENCOUNTER → 2019-08-24 | Outpatient (CLI) | payer OTHER ==
--- NOTE | 2019-08-24 10:45 | CT ---
EXAMINATION TYPE: CT chest wo con DATE OF EXAM: 08/24/2019 COMPARISON: None HISTORY: Shortness of breath CT DLP: 258.2 mGycm. Automated Exposure Control for Dose Reduction was Utilized. TECHNIQUE: CT scan of the thorax is performed without IV contrast. FINDINGS: LUNGS: The lungs are grossly clear, there is no concerning parenchymal mass or nodule identified ther e is apical pleural thickening greater on the right. There is a vague 7 mm area of nodular density le ft lung apex which is ill-defined and most likely postinflammatory. Subsegmental areas of consolidati on are seen. Hyperexpansion can be seen with COPD or asthma. There is a bleb in the right upper lobe. Have peribronchial perihilar thickening is noted could been the basis of bronchitis or interstitial pneumonitis. No large area of consolidation seen. MEDIASTINUM: Lack of IV contrast is noted to limit evaluation for mediastinal and especially hilar ad enopathy. There are no definitive greater than 1 cm hilar or mediastinal lymph nodes. No cardiomega ly or pericardial effusion is seen. OTHER: No additional significant abnormality is seen. IMPRESSION: 1. Hyperexpansion correlate for COPD or asthma. There is a 7 mm ill-defined nodule in the right upper lobe axial image 19. This is too small to characterize could be postinflammatory. Recommend a 6 alla h follow-up CT scan to confirm stability. 2. There is peribronchial bilateral wall thickening which could be associated with a bronchitis, bron chiectasis or bronchiolitis\interstitial pneumonitis. More tubular density seen in the left upper lob e axial image 30 may represent an area of bronchiectasis.
== END | disposition home or self-care (01) ==
LOC: RADCTMAIN 10:19
PROVIDERS: ATTEND Internal Medicine Pulmonary Disease
DX: J98.4 Other disorders of lung (principal); R91.1 Solitary pulmonary nodule; R06.00 Dyspnea, unspecified; R05 Cough; J44.9 Chronic obstructive pulmonary disease, unspecified; Z72.0 Tobacco use; Z79.899 Other long term (current) drug therapy
CPT/HCPCS: 71250

== ENCOUNTER 2020-03-28 11:10 | Emergency (ER) | payer OTHER ==
--- NOTE | 2020-03-28 11:41 | ED ---
Extremity Problem HPI - General Chief complaint: Extremity Problem,Nontraumatic Stated complaint: LEG FEEING COLD Time Seen by Provider: 03/28/20 11:34 Source: patient Mode of arrival: wheelchair Limitations: no limitations - History of Present Illness Initial comments: Patient 39-year-old female presenting to emergency Department with a chief complaint of a cold right leg. Patient states her symptoms started about 2 weeks ago when she woke up in the morning and both of her legs felt cold and were painful. Patient reports then the left lower extremity improved, however the right persisted on being cold and she had difficulty with a relation. Jeff dumont states she was at [facility] about one week ago where she had some imaging performed and was probably discharge. Patient reports she continues to have the symptoms of the right lower extremity. She went to see a neurologist today, who advised to come to the emergency department for vascular evaluation. Patient is a smoker. She denies history of hyperlipidemia or limb ischemia. - Related Data Home Medications Medication Instructions Recorded Confirmed Albuterol Sulfate [Proair Hfa] 2 puff INHALATION RT-Q6H PRN 03/28/20 03/28/20 Loratadine [Claritin] 10 mg PO DAILY 03/28/20 03/28/20 Montelukast [Singulair] 10 mg PO DAILY 03/28/20 03/28/20 Omeprazole [PriLOSEC] 20 mg PO DAILY 03/28/20 03/28/20 Pregabalin [Lyrica] 25 mg PO BID 03/28/20 03/28/20 Allergies Allergy/AdvReac Type Severity Reaction Status Date / Time paroxetine HCl [From Paxil] Allergy throat Verified 01/04/19 17:08 burning & swelling Review of Systems ROS Statement: Those systems with pertinent positive or pertinent negative responses have been documented in the HPI. ROS Other: All systems not noted in ROS Statement are negative. Past Medical History Past Medical History: Asthma, Musculoskeletal Disorder Additional Past Medical History / Comment(s): had gestational diabetes during , back problems History of Any Multi-Drug Resistant Organisms: None Reported Past Surgical History: Tubal Ligation Past Anesthesia/Blood Transfusion Reactions: No Reported Reaction Past Psychological History: Anxiety, Depression Smoking Status: Current every day smoker Past Alcohol Use History: None Reported Past Drug Use History: None Reported - Past Family History Father Family Medical History: Cancer Mother Family Medical History: Hypertension General Exam Limitations: no limitations General appearance: alert, in no apparent distress Head exam: Present: atraumatic, normocephalic, normal inspection Eye exam: Present: normal appearance, PERRL, EOMI Pupils: Present: normal accommodation ENT exam: Present: normal exam, normal oropharynx, mucous membranes moist, TM's normal bilaterally, normal external ear exam Neck exam: Present: normal inspection, full ROM. Absent: tenderness Respiratory exam: Present: normal lung sounds bilaterally. Absent: respiratory distress, wheezes, rales Cardiovascular Exam: Present: regular rate, normal rhythm, normal heart sounds Extremities exam: Present: full ROM, tenderness, normal capillary refill, calf tenderness (Right), other (+2 dorsalis pedis. Posterior tibials are detected with Doppler. Sensation intact). Absent: normal inspection (Right lower extremity below the knee appears to be cold compared to the left.), pedal edema, joint swelling Back exam: Present: normal inspection, full ROM. Absent: tenderness, CVA tenderness (R), CVA tenderness (L) Neurological exam: Present: alert, oriented X3 Psychiatric exam: Present: normal affect, normal mood Skin exam: Present: warm, dry, intact, normal color Course Vital Signs 03/28/20 03/28/20 03/28/20 11:18 12:37 14:00 Temperature 98.1 F 98.0 F Pulse Rate 114 H 93 86 Respiratory 18 18 20 Rate Blood Pressure 133/85 115/97 126/95 O2 Sat by Pulse 97 96 96 Oximetry Medical Decision Making - Medical Decision Making Take patient is a 39-year-old female presenting to the emergency department with a chief complaint right leg pain. On physical examination, the right leg does appear to be cold compared to the left. Overall, she does have +2 dorsalis pedis and I was able to detect the posterior tibialis with a Doppler ultrasound. Laboratory work is unremarkable. CT angiogram of the bilateral lower extremities was obtained reveals abnormal flow in the right calf region. Thrombus cannot be excluded at this time. Dr. Rowland also examined the patient and consulted . She examined the patient and cleared her for discharge, and advised to take 81 mg aspirin daily. Patient is set to follow-up with her primary care physician. She was also given Xanax in the emergency department due to increased anxiety. Strict return parameters were thoroughly discussed the patient was understanding and agreeable. Case discussed with physician. - Lab Data Result diagrams: 03/28/20 11:44 03/28/20 12:50 Lab Results 03/28/20 03/28/20 03/28/20 Range/Units 11:44 11:44 12:50 WBC 7.0 (3.8-10.6) k/uL RBC 5.15 (3.80-5.40) m/uL Hgb 16.0 (11.4-16.0) gm/dL Hct 47.6 H (34.0-46.0) % MCV 92.4 (80.0-100.0) fL MCH 31.0 (25.0-35.0) pg MCHC 33.6 (31.0-37.0) g/dL RDW 13.0 (11.5-15.5) % Plt Count 382 (150-450) k/uL Neutrophils % 56 % Lymphocytes % 32 % Monocytes % 6 % Eosinophils % 4 % Basophils % 1 % Neutrophils # 3.9 (1.3-7.7) k/uL Lymphocytes # 2.2 (1.0-4.8) k/uL Monocytes # 0.4 (0-1.0) k/uL Eosinophils # 0.3 (0-0.7) k/uL Basophils # 0.0 (0-0.2) k/uL Sodium 138 (137-145) mmol/L Potassium 4.7 (3.5-5.1) mmol/L Chloride 108 H (98-107) mmol/L Carbon Dioxide 23 (22-30) mmol/L Anion Gap 7 mmol/L BUN 24 H (7-17) mg/dL Creatinine 0.64 (0.52-1.04) mg/dL Est GFR (CKD-EPI)AfAm >90 (>60 ml/min/1.73 sqM) Est GFR (CKD-EPI)NonAf >90 (>60 ml/min/1.73 sqM) Glucose 97 (74-99) mg/dL Plasma Lactic Acid Eugene 1.0 (0.7-2.0) mmol/L Calcium 9.2 (8.4-10.2) mg/dL Total Bilirubin 0.7 (0.2-1.3) mg/dL AST 25 (14-36) U/L ALT 16 (4-34) U/L Alkaline Phosphatase 64 (38-126) U/L Total Protein 7.2 (6.3-8.2) g/dL Albumin 4.2 (3.5-5.0) g/dL - EKG Data EKG Comments: Sinus rhythm. No ST changes. Ventricular rate 89, PA 112, QRS 86, QTC 428 Disposition Clinical Impression: Right leg pain Disposition: HOME SELF-CARE Condition: Stable Instructions (If sedation given, give patient instructions): Leg Pain (ED) Additional Instructions: Follow with her primary care physician. Return to emergency department if symptoms worsen. Is patient prescribed a controlled substance at d/c from ED?: No Referrals: Comfort Leung MD [Primary Care Provider] - 1-2 days Time of Disposition: 14:51
[2020-03-28 12:24] LABS: Basophils % (A) 1 %; Eosinophils # (A) 0.3 k/uL (0-0.7); Eosinophils % (A) 4 %; HCT 47.6 % (34.0-46.0); Lymphocytes # (A) 2.2 k/uL (1.0-4.8); Lymphocytes % (A) 32 %; MCHC 33.6 g/dL (31.0-37.0); MCV 92.4 fL (80.0-100.0); Mean Platelet Volume 7.2; Monocytes # (A) 0.4 k/uL (0-1.0); Monocytes % (A) 6 %; Neutrophils # (A) 3.9 k/uL (1.3-7.7); Neutrophils % (A) 56 %; Platelet Count 382 k/uL (150-450); RBC 5.15 m/uL (3.80-5.40)
[2020-03-28 13:14] LABS: ALT 16 U/L (4-34); AST 25 U/L (14-36); African American GFR (CKD) >90 (>60 ml/min/1.73 sqM); Albumin 4.2 g/dL (3.5-5.0); Alkaline Phosphatase 64 U/L (38-126); Anion Gap 7 mmol/L; Blood Urea Nitrogen 24 mg/dL (7-17); Calcium 9.2 mg/dL (8.4-10.2); Carbon Dioxide 23 mmol/L (22-30); Chloride 108 mmol/L (98-107); Glucose 97 mg/dL (74-99); Non-African American GFR(CKD) >90 (>60 ml/min/1.73 sqM); Potassium 4.7 mmol/L (3.5-5.1); Sodium 138 mmol/L (137-145); Total Bilirubin 0.7 mg/dL (0.2-1.3); Total Protein 7.2 g/dL (6.3-8.2)
--- NOTE | 2020-03-28 14:05 | CT ---
EXAMINATION TYPE: CT angio lower extremity BILAT DATE OF EXAM: 03/28/2020 1:52 PM COMPARISON: None HISTORY: Concern for leg iscehmia, particularly right leg CT DLP: 1590.1 mGycm Automated exposure control for dose reduction was used. TECHNIQUE: Performed without and with IV Contrast, patient injected with 100 mL of Isovue 370. . FINDINGS: The visualized portions of the abdominal aorta and the major branch vessels are patent without signif icant plaque disease. The common iliac arteries as well as the internal and external iliac arteries a re patent bilaterally without evidence for thrombus or atheromatous change. The common femoral arteries, superficial femoral arteries and profunda femoris arteries bilaterally i ncluding the popliteal arteries are all patent without thrombus or significant atheromatous change. The trifurcations are symmetric bilaterally however at the level of the proximal to mid right calf th ere is slow and differential flow into the calf vessels including the anterior and posterior tibial a rteries and peroneal arteries. Distal thrombus is difficult to exclude and conventional angiography i s advised to further evaluation. Calf vessels on the left appear to be within normal limits. Incidental left ovarian cyst measuring 1.9 cm. Tubal ligation changes. IMPRESSION: 1. At the level of the proximal to mid right calf there is slow and asymmetric differential flow into the calf vessels including the anterior and posterior tibial arteries and peroneal artery. Distal th rombus is difficult to exclude and conventional angiography is advised to further evaluation.
[2020-03-28 14:12] VITALS: BP 126/95; PULSE 86; RESP 20; TEMP 98
[2020-03-28] MEDS: ALPRAZolam 1 MG TAB PO STA ×2 (14:33→14:38)
[2020-03-28] MEDS ORDERED: ALPRAZolam 1 MG TAB PO STA (14:35)
--- NOTE | 2020-03-28 15:31 | P.GSCN ---
History of Present Illness Consult date: 03/28/20 Reason for Consult: Cold right foot, pain in right foot History of present illness: Patient 39-year-old female presenting to emergency Department with a chief complaint of a cold right leg. Patient states her symptoms started about 2 weeks ago when she woke up in the morning and both of her legs felt cold and were painful. Patient reports then the left lower extremity improved, however the right persisted on being cold and she had difficulty with a relation. Patient states she was at [facility] about one week ago where she had some imaging performed and was probably discharge. Patient reports she continues to have the symptoms of the right lower extremity. She went to see a neurologist today, who advised to come to the emergency department for vascular evaluation. Patient is a smoker. She denies history of hyperlipidemia or limb ischemia. She states she has a history of COPD and asthma. She denies knowing any family history of peripheral arterial disease. States that her mother of coronary artery disease at the age of 40. Patient underwent a CT angiogram of the lower extremities with the impression stating at the level proximal to mid right calf there is slight asymmetric differential flow into the calf vessels including the anterior and posterior tibial arteries and peroneal artery. Distal thrombus is difficult to exclude and conventional angiography is advised to further evaluate. The patient states she can move bilateral lower extremities, however it is more difficult and painful with the right foot. She denies any shortness breath or chest pain. Review of Systems 14 point review of systems was completed all pertinent positives and negatives as stated in the HPI Past Medical History Past Medical History: Asthma, Musculoskeletal Disorder Additional Past Medical History / Comment(s): had gestational diabetes during , back problems History of Any Multi-Drug Resistant Organisms: None Reported Past Surgical History: Tubal Ligation Past Anesthesia/Blood Transfusion Reactions: No Reported Reaction Past Psychological History: Anxiety, Depression Smoking Status: Current every day smoker Past Alcohol Use History: None Reported Past Drug Use History: None Reported - Past Family History Father Family Medical History: Cancer Mother Family Medical History: Hypertension Medications and Allergies Home Medications Medication Instructions Recorded Confirmed Type Albuterol Sulfate [Proair Hfa] 2 puff INHALATION RT-Q6H PRN 03/28/20 03/28/20 History Loratadine [Claritin] 10 mg PO DAILY 03/28/20 03/28/20 History Montelukast [Singulair] 10 mg PO DAILY 03/28/20 03/28/20 History Omeprazole [PriLOSEC] 20 mg PO DAILY 03/28/20 03/28/20 History Pregabalin [Lyrica] 25 mg PO BID 03/28/20 03/28/20 History Allergies Allergy/AdvReac Type Severity Reaction Status Date / Time paroxetine HCl [From Paxil] Allergy throat Verified 01/04/19 17:08 burning & swelling Surgical - Exam Vital Signs Temp Pulse Resp BP Pulse Ox 98.1 F 114 H 18 133/85 97 03/28/20 11:18 03/28/20 11:18 03/28/20 11:18 03/28/20 11:18 03/28/20 11:18 General appearance: The patient is alert, oriented, in no acute distress. HET: Head is normocephalic and atraumatic. Neck: Supple without lymphadenopathy. Heart: S1 S2. Regular rate and rhythm. Lungs: No crackles or wheezes are heard. Abdomen: Soft, nontender, nondistended with bowel sounds. Extremities: Normal skin color and turgor. Right foot cool to touch compared to left. Palpable bilateral femoral pulses, popliteal, DP and PT pulses. Bi lateral radial pulses +2. Full range of motion of bilateral lower extremities. Neurological: No focal deficits. Strength and sensation are grossly intact. Results CT angiogram of the bilateral lower extremities with the impression stating at the level proximal to mid right calf there is slight asymmetric differential flow into the calf vessels including the anterior and posterior tibial arteries and peroneal artery. Distal thrombus is difficult to exclude and conventional angiography is advised to further evaluate. - Labs 03/28/20 11:44 03/28/20 12:50 Abnormal Lab Results - Last 24 Hours (Table) 03/28/20 03/28/20 Range/Units 11:44 12:50 Hct 47.6 H (34.0-46.0) % Chloride 108 H (98-107) mmol/L BUN 24 H (7-17) mg/dL Diabetes panel 03/28/20 Range/Units 12:50 Sodium 138 (137-145) mmol/L Potassium 4.7 (3.5-5.1) mmol/L Chloride 108 H (98-107) mmol/L Carbon Dioxide 23 (22-30) mmol/L BUN 24 H (7-17) mg/dL Creatinine 0.64 (0.52-1.04) mg/dL Glucose 97 (74-99) mg/dL Calcium 9.2 (8.4-10.2) mg/dL AST 25 (14-36) U/L ALT 16 (4-34) U/L Alkaline Phosphatase 64 (38-126) U/L Total Protein 7.2 (6.3-8.2) g/dL Albumin 4.2 (3.5-5.0) g/dL Calcium panel 03/28/20 Range/Units 12:50 Calcium 9.2 (8.4-10.2) mg/dL Albumin 4.2 (3.5-5.0) g/dL Pituitary panel 03/28/20 Range/Units 12:50 Sodium 138 (137-145) mmol/L Potassium 4.7 (3.5-5.1) mmol/L Chloride 108 H (98-107) mmol/L Carbon Dioxide 23 (22-30) mmol/L BUN 24 H (7-17) mg/dL Creatinine 0.64 (0.52-1.04) mg/dL Glucose 97 (74-99) mg/dL Calcium 9.2 (8.4-10.2) mg/dL Adrenal panel 03/28/20 Range/Units 12:50 Sodium 138 (137-145) mmol/L Potassium 4.7 (3.5-5.1) mmol/L Chloride 108 H (98-107) mmol/L Carbon Dioxide 23 (22-30) mmol/L BUN 24 H (7-17) mg/dL Creatinine 0.64 (0.52-1.04) mg/dL Glucose 97 (74-99) mg/dL Calcium 9.2 (8.4-10.2) mg/dL Total Bilirubin 0.7 (0.2-1.3) mg/dL AST 25 (14-36) U/L ALT 16 (4-34) U/L Alkaline Phosphatase 64 (38-126) U/L Total Protein 7.2 (6.3-8.2) g/dL Albumin 4.2 (3.5-5.0) g/dL Assessment and Plan Assessment: 1. Right foot pain CT angiogram reviewed by Dr. Leonard. There is no evidence of thrombus/occlusion. Considering there are bilateral palpable DP pulses, this is likely microvascular can be followed up outpatient. 2. Tobacco abuse Plan: CT angiogram reviewed by Dr. Leonard. Considering the patient has bilateral palpable PT and DP pulses there is unlikely any thrombus or occlusion, and likely microvascular. The patient was reassured, and was instructed to follow- up with Dr. Good and can follow-up with Dr. Leonard as an outpatient for consideration of further workup. Recommend smoking cessation. Thank you for this consultation and allowing us take part in the plan of care of your patient. The impression and plan of care has been dictated as directed. Dr. Leonard I performed a history and examination of this patient, discussed the same with the dictator. I agree with the dictator's note ,documented as a scribe. Any additional findings or plans will be noted.
== END 2020-03-28 14:59 | disposition home or self-care (01) ==
LOC: EC 11:10
DX: M79.604 Pain in right leg (principal); J45.909 Unspecified asthma, uncomplicated; F17.200 Nicotine dependence, unspecified, uncomplicated; Z79.51 Long term (current) use of inhaled steroids; Z79.899 Other long term (current) drug therapy; Z88.8 Allergy status to other drugs, medicaments and biological substances; M79.671 Pain in right foot
CPT/HCPCS: 36415; 93005; 80053; 83605; 85025; 73706; 99284; Q9967